=== PATIENT | male | born 1970 ===

== ENCOUNTER 2018-01-08 09:13 | Emergency (ER) | payer SELFPAY ==
[2018-01-08] MEDS ORDERED: LISI-362 PO (09:33)
[2018-01-08] MEDS ORDERED: ESOM40CA42 PO (09:33)
[2018-01-08] MEDS ORDERED: ASPI81TA94 PO (09:33)
[2018-01-08] MEDS ORDERED: MULT1CAP59 PO (09:33)
[2018-01-08] MEDS ORDERED: ASPIRIN 81 MG CHEW CHEW ONE (09:45)
--- NOTE | 2018-01-08 09:46 | EKG ---
FACILITY: [facility] PATIENT NAME: EAGLE MOORE : [id number] MR: [id number] V: [id number] EXAM DATE: ORDERING PHYSICIAN: HAYES HERNANDEZ TECHNOLOGIST: CLAIR Garcia Reason : SOB Blood Pressure : / mmHG Vent. Rate : 097 BPM Atrial Rate : 097 BPM P-R Int : 126 ms QRS Dur : 092 ms QT Int : 342 ms P-R-T Axes : 066 048 049 degrees QTc Int : 434 ms Normal sinus rhythm Baseline variation. Normal ECG No previous ECGs available Confirmed by ISAK FREDERICK ([id number]) on 01/08/2018 5:26:28 PM Referred By: MARY Confirmed By:ISAK FREDERICK
[2018-01-08 10:00] LABS: PLATELET COUNT, AUTOMATED 343 K/uL (150-450)
--- NOTE | 2018-01-08 10:02 | ER Report ---
History and Physical Time Seen By MD: 10:02 Hx. of Stated Complaint: Patient complains of pain and shortness of breath. HPI/ROS CHIEF COMPLAINT: chest pain HISTORY OF PRESENT ILLNESS: This is a 47 year old male. 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 He has been having chest pain off and on for about 3 weeks now. He has noticed that his symptoms increase with exertion. He has mild central chest pain at this time. Feels a little short of breath as well. No nausea or vomiting. No sweats. He is also having some pain and drainage from the left ear, history of chronic ear infections. Last infection about a year ago with antibiotics. He has seen ENT for evaluation. REVIEW OF SYSTEMS: Constitutional: No fever or chills. Cardiovascular: No irregular beats or palpitations. Respiratory: No cough. Gastrointestinal: No abdominal pain. No nausea or vomiting. Genitourinary: No dysuria. Musculoskeletal: No musculoskeletal pain Skin: No rashes. Neurological: No numbness. No weakness. Allergies: Coded Allergies: No Known Drug Allergies (Unverified , 01/08/18) Home Meds Active Scripts Amoxicillin/Pot Clav 875-125 Mg Tab (AUGMENTIN 875-125 TABLET) 1 Each Tablet, 1 TAB PO Q12H, #20 TAB 0 Refills Prov:HAYES HERNANDEZ MD 01/08/18 Hydrocodone Bit/Acetaminophen (HYDROCODON-ACETAMINOPHEN 5-325) 1 Each Tablet, 1 EACH PO Q4H Y for PAIN, #12 TAB 0 Refills Prov:HAYES HERNANDEZ MD 01/08/18 Reported Medications Esomeprazole Magnesium (NEXIUM) 40 Mg Capsule.dr, 1 CAP PO QDAY, CAP 01/08/18 Multivitamin (MULTIVITAMINS) 1 Each Capsule, 1 EACH PO QDAY, CAPSULE 01/08/18 Lisinopril (LISINOPRIL) 10 Mg Tablet, 10 MG PO QDAY, TAB 01/08/18 Aspirin (ASPIRIN) 81 Mg Tab.chew, 81 MG PO QDAY, TAB.CHEW 01/08/18 Reviewed Nurses Notes: Yes Hx Substance Use Disorder: No Hx Alcohol Use: Yes (rare) Constitutional Vital Sign - Last 24 Hours 01/08/18 01/08/18 01/08/18 01/08/18 09:24 09:28 09:36 09:43 Pulse 96 91 Resp 16 12 B/P (MAP) 117/101 (106) 117/101 126/81 (96) Pulse Ox 95 94 01/08/18 01/08/18 01/08/18 01/08/18 10:05 10:13 10:24 10:30 Temp 98.6 Pulse 113 Resp 10 B/P (MAP) 140/84 (102) 115/89 (98) Pulse Ox 95 01/08/18 01/08/18 01/08/18 01/08/18 10:43 11:00 11:13 11:30 Pulse 80 ??? Resp 9 B/P (MAP) 115/84 (94) 125/82 (96) Pulse Ox 93 01/08/18 01/08/18 01/08/18 01/08/18 11:43 12:00 12:13 12:30 Pulse 80 78 Resp 23 24 B/P (MAP) 103/96 (98) 124/95 (105) Pulse Ox 89 88 01/08/18 01/08/18 01/08/18 01/08/18 12:43 12:48 13:03 13:18 Pulse 89 92 80 Resp 18 23 23 B/P (MAP) 95/76 (82) Pulse Ox 92 87 90 01/08/18 01/08/18 13:30 13:48 Pulse 92 Resp 22 B/P (MAP) 126/112 (117) Pulse Ox 97 Physical Exam General Appearance: The patient is alert. No acute distress. Eyes: Pupils are equal, round. No pallor, injection or icterus. ENT: Mucous membranes are moist. Normal oral mucosa. Posterior oropharynx is normal. He has a bulging and red tympanic membrane on the left side. Neck: Supple and non tender. No lymphadenopathy. Respiratory: Lungs are clear to auscultation. Cardiovascular: Regular rate and rhythm. No murmurs, gallops or rubs. Normal capillary refill. Gastrointestinal: Abdomen is soft and non tender. Nondistended. Normal active bowel sounds. Neurological: Alert and oriented x3. No focal neurologic deficits Skin: Warm and dry. Musculoskeletal: Extremities are nontender. Full range of motion. No tenderness in palpation of the cervical, thoracic and lumbar spine. DIFFERENTIAL DIAGNOSIS: After history and physical exam, differential diagnosis was considered for chest pain which is concerning for angina and will rule out heart attack or PE. He also has a otitis media of the left ear. Medical Decision Making Data Points Result Diagram: 01/08/18 0934 01/08/18 0934 Laboratory Hematology Test 01/08/18 00:00 01/08/18 09:34 01/08/18 12:40 D-Dimer Quantitative (PE/DVT) < 0.27 ug/ml (0-0.50) Red Blood Count 5.04 M/uL (4.00-5.60) Mean Corpuscular Volume 92.4 fL (80.0-96.0) Mean Corpuscular Hemoglobin 31.7 pg (26.0-33.0) Mean Corpuscular Hemoglobin Concent 34.3 g/dL (32.0-36.0) Red Cell Distribution Width 13.7 % (11.5-14.5) Mean Platelet Volume 7.7 fL (7.2-11.1) Neutrophils (%) (Auto) 80.4 % (39.4-72.5) Lymphocytes (%) (Auto) 13.6 % (17.6-49.6) Monocytes (%) (Auto) 3.5 % (4.1-12.4) Eosinophils (%) (Auto) 1.4 % (0.4-6.7) Basophils (%) (Auto) 1.1 % (0.3-1.4) Nucleated RBC Relative Count (auto) 0.0 /100WBC Neutrophils # (Auto) 10.5 K/uL (2.0-7.4) Lymphocytes # (Auto) 1.8 K/uL (1.3-3.6) Monocytes # (Auto) 0.5 K/uL (0.3-1.0) Eosinophils # (Auto) 0.2 K/uL (0.0-0.5) Basophils # (Auto) 0.1 K/uL (0.0-0.1) Nucleated RBC Absolute Count (auto) 0.00 K/uL Sodium Level 138 mmol/L (137-145) Potassium Level 4.2 mmol/L (3.5-5.0) Chloride Level 103 mmol/L (98-107) Carbon Dioxide Level 22 mmol/L (22-30) Blood Urea Nitrogen 11 mg/dl (9-21) Creatinine 0.80 mg/dl (0.66-1.25) Glomerular Filtration Rate Calc > 60.0 Random Glucose 105 mg/dl (75-110) Calcium Level 9.7 mg/dl (8.4-10.2) Total Bilirubin 0.5 mg/dl (0.2-1.3) Aspartate Amino Transf (AST/SGOT) 24 U/L (0-35) Alanine Aminotransferase (ALT/SGPT) 39 U/L (0-56) Alkaline Phosphatase 102 U/L (0-126) Total Protein 8.1 gm/dl (6.3-8.2) Albumin 4.7 g/dl (3.5-5.0) Troponin I < 0.012 ng/ml Chemistry Test 01/08/18 00:00 01/08/18 09:34 01/08/18 12:40 D-Dimer Quantitative (PE/DVT) < 0.27 ug/ml (0-0.50) White Blood Count 13.1 k/uL (4.5-11.0) Red Blood Count 5.04 M/uL (4.00-5.60) Hemoglobin 16.0 g/dL (14.0-18.0) Hematocrit 46.5 % (42.0-52.0) Mean Corpuscular Volume 92.4 fL (80.0-96.0) Mean Corpuscular Hemoglobin 31.7 pg (26.0-33.0) Mean Corpuscular Hemoglobin Concent 34.3 g/dL (32.0-36.0) Red Cell Distribution Width 13.7 % (11.5-14.5) Platelet Count 343 K/uL (150-450) Mean Platelet Volume 7.7 fL (7.2-11.1) Neutrophils (%) (Auto) 80.4 % (39.4-72.5) Lymphocytes (%) (Auto) 13.6 % (17.6-49.6) Monocytes (%) (Auto) 3.5 % (4.1-12.4) Eosinophils (%) (Auto) 1.4 % (0.4-6.7) Basophils (%) (Auto) 1.1 % (0.3-1.4) Nucleated RBC Relative Count (auto) 0.0 /100WBC Neutrophils # (Auto) 10.5 K/uL (2.0-7.4) Lymphocytes # (Auto) 1.8 K/uL (1.3-3.6) Monocytes # (Auto) 0.5 K/uL (0.3-1.0) Eosinophils # (Auto) 0.2 K/uL (0.0-0.5) Basophils # (Auto) 0.1 K/uL (0.0-0.1) Nucleated RBC Absolute Count (auto) 0.00 K/uL Glomerular Filtration Rate Calc > 60.0 Calcium Level 9.7 mg/dl (8.4-10.2) Total Bilirubin 0.5 mg/dl (0.2-1.3) Aspartate Amino Transf (AST/SGOT) 24 U/L (0-35) Alanine Aminotransferase (ALT/SGPT) 39 U/L (0-56) Alkaline Phosphatase 102 U/L (0-126) Total Protein 8.1 gm/dl (6.3-8.2) Albumin 4.7 g/dl (3.5-5.0) Troponin I < 0.012 ng/ml Coagulation Test 01/08/18 00:00 D-Dimer Quantitative (PE/DVT) < 0.27 ug/ml EKG/Imaging EKG Interpretation 12 lead EKG: Rhythm: normal sinus rhythm, rate 97 [place]: normal QRS: normal ST segments: normal Imaging Exam type: CHEST PA AND LAT History: Chest Pain Comparison: None. Findings: The lungs are free of acute effusions, infiltrates or edema. There is no evidence of pneumothorax or pneumomediastinum. The cardiac silhouette is normal in size. The trachea is midline. IMPRESSION: 1. No acute cardiopulmonary process is seen Report Dictated By: Alexandra Harper MD at 01/08/2018 10:54 AM ED Course/Re-evaluation Clinical Indication for ER IV: Hydration, IV Access ED Course After the initial evaluation, the patient was given Morphine 4mg IV and Zofran 4mg IV to help with pain. Aspirin given and labs done. EKG without any signs of ischemia. Chest x-ray shows no acute cardiopulmonary processes. Negative troponin initially. Repeat EKG and troponin were negative after a 3 hour window. Discussed that while he has not had a heart attack at this time, I still worry that his symptoms are angina. We talked about option. He would prefer to see his doctor or cardiology at home instead of near here. I recommended that he be off work, return home immediately to follow-up for stress testing. He understoo and agreed with this. We discussed what angina is and intervention prior to having a heart attack was the goal. He will start an aspirin daily. He will restrict himself to light activity only. If he has further pain, he can return here or another ER if this happens. Decision to Disposition Date: Jan 08, 2018 Decision to Disposition Time: 13:38 Depart Departure Latest Vital Signs Vital Signs Date Time Temp Pulse Resp B/P (MAP) Pulse Ox O2 Delivery O2 Flow Rate FiO2 01/08/18 13:48 92 22 97 01/08/18 13:30 126/112 (117) 01/08/18 10:24 98.6 Impression: Primary Impression: Chest pain Additional Impressions: Angina pectoris Otitis media Condition: Improved Disposition: HOME OR SELF-CARE New Scripts Amoxicillin/Pot Clav 875-125 Mg Tab (AUGMENTIN 875-125 TABLET) 1 Each Tablet 1 TAB PO Q12H, #20 TAB 0 Refills Prov: HAYES HERNANDEZ MD 01/08/18 Hydrocodone Bit/Acetaminophen (HYDROCODON-ACETAMINOPHEN 5-325) 1 Each Tablet 1 EACH PO Q4H Y for PAIN, #12 TAB 0 Refills Prov: HAYES HERNANDEZ MD 01/08/18 Patient Instructions: Angina (ED), Otitis Media (ED) Additional Instructions: We think that you are having chest pain that is due to problems with the arteries around your heart. You have not had a heart attack at this time, but we want to prevent that from happening. 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 This should happen sooner rather than later to avoid problems that can come from waiting. It would be appropriate at this time to return to [place] and follow-up with the local doctors at home. Please do not perform any heavy physical activity until your evaluation. If you are doing something that causes pain, stop. Light activity only. For severe pain, please go to the ER for evaluation. Start a full dose aspirin daily (325mg). Off work until you have further evaluation and cleared by your doctors in [place]. For your ear infection, take Augmentin 875/125 twice a day for 10 days. You can take Lortab 5/325, one every 4hours as needed for pain. Problem Qualifiers Primary Impression: Chest pain Chest pain type: chest pain due to myocardial ischemia Ischemic chest pain type: stable angina pectoris Qualified Codes: I20.8 - Other forms of angina pectoris Additional Impressions: Otitis media Otitis media type: suppurative Chronicity: chronic Laterality: left Suppurative otitis media location: unspecified location Qualified Codes: H66.3X2 - Other chronic suppurative otitis media, left ear HAYES HERNANDEZ MD Jan 08, 2018 10:02
[2018-01-08] MEDS ORDERED: MORPHINE 4 MG/ML SDV IVP ONE (10:25)
[2018-01-08] MEDS ORDERED: ONDANSETRON 4 MG/2 ML VIAL IVP ONE (10:25)
--- NOTE | 2018-01-08 10:59 | RADIOLOGY IMAGING REPORT ---
FACILITY: [facility] PATIENT NAME: Rafi Velez : 1970 MR: [id number] V: [id number] EXAM DATE: ORDERING PHYSICIAN: HAYES HERNANDEZ TECHNOLOGIST: Location: [facility] [place] Patient: Rafi Velez : 1970 Visit/Account:[id number] Date of Sevice: 01/08/2018 Exam type: CHEST PA AND LAT History: Chest Pain Comparison: None. Findings: The lungs are free of acute effusions, infiltrates or edema. There is no evidence of pneumothorax or pneumomediastinum. The cardiac silhouette is normal in size. The trachea is midline. IMPRESSION: 1. No acute cardiopulmonary process is seen Report Dictated By: Alexandra Harper MD at 01/08/2018 10:54 AM Report E-Signed By: Alexandra Harper MD at 01/08/2018 10:55 AM WSN:[id number]
--- NOTE | 2018-01-08 12:42 | EKG ---
[place] [facility] [place]IENT NAME: EAGLE MOORE : [id number] MR: [id number] V: [id number] EXAM DATE: ORDERING PHYSICIAN: HAYES HERNANDEZ TECHNOLOGIST: CLAIR Garcia Reason : REPEAT-CP Blood Pressure : / mmHG Vent. Rate : 092 BPM Atrial Rate : 092 BPM P-R Int : 134 ms QRS Dur : 088 ms QT Int : 360 ms P-R-T Axes : 061 060 053 degrees QTc Int : 445 ms Normal sinus rhythm Normal ECG When compared with ECG of 08-JAN-2018 09:23, No significant change was found Confirmed by ISAK FREDERICK ([id number]) on 01/08/2018 5:27:00 PM Referred By: MARY Confirmed By:ISAK FREDERICK
[2018-01-08 13:30] VITALS: BP 126/112
[2018-01-08] MEDS ORDERED: AMOX-559 PO (13:41)
[2018-01-08] MEDS ORDERED: LOR5/325 PO (13:41)
== END 2018-01-08 13:56 | disposition home or self-care (01) ==
LOC: ER 09:24
DX: I20.9 Angina pectoris, unspecified (principal); H66.3X2 Other chronic suppurative otitis media, left ear
CPT/HCPCS: 36415; 71046; 84484; 85025; 85379; 93005; 96374; 96375; 99284; J2270; J2405; 82040; 82247; 82310; 82374; 82435; 82565; 82947; 84075; 84132; 84155; 84295; 84450; 84460; 84520